=== PATIENT | male | born 1960 | race Caucasian/White ===

== ENCOUNTER 2019-04-07 09:21 | Observation (INO) ==
[2019-04-07] MEDS ORDERED: PHENERGAN IV PRN (09:40)
[2019-04-07] MEDS ORDERED: TORADOL IV PRN (09:40)
[2019-04-07] MEDS ORDERED: PROTONIX IV SCH (11:00)
[2019-04-07] MEDS ORDERED: SODIUM CHLORIDE 0.9% INJ SCH (11:00)
[2019-04-07 11:14] LABS: BASO# 0.03 X1000 (0.0-0.2); BASO% 0.3 % (0.0-0.8); EOS# 0.18 X1000 (0.0-0.7); HEMATOCRIT 51.6 % (42.0-52.0); HEMOGLOBIN 17.1 g/dL (14.0-18.0); IMM GRAN# 0.02 X1000 (0.0-0.04); IMM GRAN% 0.2 % (0.0-0.5); LYMPH# 2.48 X1000 (1.2-3.4); LYMPH% 27.3 % (20.5-51.1); MCH 30.6 PG (27-31); MCHC 33.1 g/dL (33-37); MCV 92.3 FL (81-99); MONO# 0.94 X1000 (0.11-0.59); MONO% 10.4 % (1.7-9.3); MPV 10.6 FL (7.4-10.4); NEUT# 5.43 X1000 (1.4-6.5); NEUT% 59.8 % (42.2-75.2); PLT 174 X1000 (130-400); RBC 5.59 XMIL (4.7-6.1); RDW 13.6 % (11.5-14.5); WBC 9.08 X1000 (4.8-10.8)
[2019-04-07] MEDS: DILAUDID IV PRN ×3 (11:22→23:02)
[2019-04-07] MEDS: NS 1,000 ML IV SCH (11:23)
[2019-04-07 11:34] LABS: ALB/GLOB RATIO 1.5; ALBUMIN 4.4 g/dL (3.5-5.0); CALCIUM 9.5 mg/dL (8.8-10.2); CREATININE 1.4 mg/dL (0.7-1.2); POTASSIUM 4.1 mmol/L (3.5-5.1); TOTAL BILIRUBIN 0.65 mg/dL (0.20-1.00); TOTAL PROTEIN 7.3 g/dL (6.3-8.3)
--- NOTE | 2019-04-07 14:14 | Diag Imaging Result Doc PS360 ---
EXAM: CT ABD/PELVIS W/IV CONT ONLY HISTORY: Abdominal pain TECHNIQUE: CT abdomen and pelvis with intravenous contrast COMPARISON: None. FINDINGS: The gallbladder has been removed. There is fatty infiltration of the liver. Normal spleen, pancreas, and adrenal glands. There are small bilateral renal cysts and there are bilateral nonobstructing renal stones. No right-sided hydronephrosis. There is a 4 x 5 x 8 mm stone in the mid left ureter with moderate hydronephrosis and a delayed left nephrogram. No aortic aneurysm. Prominent atherosclerosis. No bowel obstruction. No inflammation about the cecum. No abscess. No ascites. The scattered colonic diverticula. The urinary bladder is distended and appears normal. IMPRESSION: 1.Obstructing left ureteral stone 2.Multiple bilateral nonobstructing renal stones 3.Cholecystectomy 4.There is fatty infiltration of the liver 5.Colonic diverticulosis This exam was performed using automated exposure control, adjustment of mA or kV according to patient size, and/or use of iterative reconstruction technique. Electronically signed by Raz Carson 04/07/2019 2:11 PM
--- NOTE | 2019-04-07 19:59 | CONSULTATION ---
DATE OF CONSULTATION: 04/07/2019 ATTENDING AND REFERRING PHYSICIAN: Dr. Hopkins. HISTORY OF PRESENT ILLNESS: This 59-year-old male has a several week history of increasing left flank pain. He states it also went into his abdomen and radiated into the left scrotum. The patient has a long history of renal lithiasis. A CT scan of the abdomen and pelvis with contrast revealed a left midureteral stone measuring approximately 5 x 8 mm. The patient is currently without pain. The patient underwent cystoscopic exam, left ureteroscopy, laser lithotripsy, and stone removal in May 2017. He has not been seen in the Urology Clinic since then. His PSA in January 2017 was 1.43. He has a history of coronary artery disease and is on is on Xarelto. The patient states he voids without difficulty. PAST MEDICAL HISTORY: History of atrial fibrillation, hypothyroidism, coronary artery disease. CURRENT MEDICATIONS: Include carvedilol, Xarelto, diazepam, digoxin, levothyroxine, lisinopril, eszopiclone 3 mg, Isentress 400 mg, Norvir 100 mg. PAST SURGICAL HISTORY: Appendectomy, cholecystectomy, colonoscopy, shockwave lithotripsy, several cystoscopic exams with ureteroscopy and stone removal. SOCIAL HISTORY: Alcohol use social, tobacco use none recently. ALLERGIES: He is allergic to latex gloves. REVIEW OF SYSTEMS: Usually in good health. He denies any problems with diabetes, strokes, seizures, pulmonary or bowel problems. PHYSICAL EXAM: General: An obese, age apparent, normally developed white male, oriented in all ways and cooperative. HEENT: Normal for age. Lungs: Clear. Cardiovascular: Regular rate and rhythm. Abdomen: No CVA tenderness at present. Abdomen is protuberant, soft, nontender. No hepatosplenomegaly or masses. Normal bowel sounds. Genitourinary: Circumcised male. No lesions or discharges. Both testes are down and palpably normal. Rectal: Deferred until surgery. Extremities: No clubbing, cyanosis, or edema. Neuro: No focal deficits. DATA: CT scan of the abdomen and pelvis is as noted in the history of present illness. IMPRESSION: 1. Bilateral renal stones that are nonobstructing. 2. Left midureteral stone with some obstruction on CT scan but currently without pain. RECOMMEND: 1. Discussed with patient cystoscopic exam with left ureteroscopy, laser lithotripsy of stone and stone removal. Discussed it would be easier if the stone had progressed to below the pelvic bones closer to the bladder. Recommend starting Flomax at 0.4 mg a day. 2. Schedule surgery for but if the pain became severe and not controlled with oral pain medication would do it sooner. Thank you for this consultation. cc: MD Solo Blackburn MD
[2019-04-07] MEDS ORDERED: DITROPAN PO PRN (21:38)
--- NOTE | 2019-04-07 22:50 | HISTORY AND PHYSICAL ---
CHIEF COMPLAINT: Left flank pain radiating to the groin since yesterday. HISTORY OF PRESENT ILLNESS: He is a 59-year-old white male basically admitted to the hospital with intractable left renal colicky pain. He had a multiple kidney stone disease. CT scan showed a 5 mm kidney stone in the mid ureter with moderate hydronephrosis. Urology consult was obtained. Based on that, further recommendations will be followed. PAST MEDICAL HISTORY: Chronic anxiety, atrial fibrillation, depression, metabolic syndrome, hypertension, nonactive HIV infection in remission, hyperlipidemia, hypothyroidism, history of kidney stones, sleep apnea. PAST SURGICAL HISTORY: Appendectomy, cholecystectomy. History of lithotripsy, stone removal in May 2017. MEDICINES: Lunesta 3 mg at bedtime, Synthroid 88 mcg daily, lisinopril 20/12.5 daily, ritonavir 100 mg daily, Xarelto 20 daily, Lyrica 75 daily, Coreg 3.125 p.o. b.i.d., Prezista 600 p.o. b.i.d., Valium 10 daily, Lanoxin 0.125 daily, multivitamin 1 tablet daily, [place] as needed, Ditropan as needed. Digoxin. ALLERGIES: Latex and Pravachol. SOCIAL HISTORY: Single. Works in [employer]. No smoking. Alcohol use socially. No drug abuse. FAMILY HISTORY: Father of aneurysm of the brain at 52. Mother is 87. Hypertension. Good health. REVIEW OF SYSTEMS: HEENT: No headache. No vision problem. No earache. No sore throat. Neck: No goiter. No lymphadenopathy. No bruit. Cardiopulmonary: No chest pain, shortness of breath, PND, orthopnea. Heart: Irregular. GI: No nausea, vomiting. Abdominal pain on the left. Renal colicky and no swelling of feet. No joint pain. Neurologic: No focal symptoms or weakness. PHYSICAL EXAMINATION: VITAL SIGNS: Temperature is 98 degrees, pulse is 70. Vitals are stable. Weight 195 pounds. HEENT: Atraumatic, normocephalic. Pupils equal, react to light. TMs are normal. Nose and throat within normal limits. NECK: Supple. No lymphadenopathy. No goiter. CHEST: Bilaterally air entry. HEART: Irregular heart sounds. ABDOMEN: Belly is soft, obese, nontender. EXTREMITIES: No peripheral edema. No neurological deficits. INVESTIGATIONS: White cell count 9, hematocrit 51, platelets 174,000. Sodium 136, potassium 4.1, chloride 99, BUN 22, creatinine 1.4, glucose 111. LFTs were normal. Urine cultures are pending. CT scan of the abdomen and pelvis showed obstructing left ureteral stone, about 4 x 8 mm stone with moderate hydronephrosis, multiple bilateral nonobstructing stones, fatty liver, colonic diverticulosis. ASSESSMENT AND PLAN: 1. A 59-year-old white male admitted to the hospital with left renal colicky. Dilaudid for pain, intravenous fluids, and Flomax. Gastrointestinal prophylaxis with IV Protonix and strain the urine. Will use the pain medications. If he passes on his own we will find; otherwise, has been tentatively scheduled for lithotripsy stone extraction morning. 2. Chronic atrial fibrillation, on Coreg and Xarelto. 3. Hypothyroidism on Synthroid. 4. Hypertension on lisinopril/hydrochlorothiazide 20/12.5. 5. Insomnia on esta. 6. Chronic anxiety on diazepam. 7. History of human immunodeficiency virus disease in remission. Continue all the medications and discussed the plan of care and he will follow up. cc: Solo Hopkins MD
[2019-04-07] MEDS: FLOMAX PO SCH (23:02)
[2019-04-07] MEDS ORDERED: AMBIEN PO SCH (23:30)
[2019-04-07] MEDS ORDERED: COREG PO SCH (23:45)
[2019-04-08] MEDS: NS 1,000 ML IV SCH (02:30)
[2019-04-08] MEDS ORDERED: SYNTHROID PO SCH (07:00)
[2019-04-08 07:50] VITALS: BP 157/85
[2019-04-08] MEDS ORDERED: LYRICA PO SCH (09:00)
[2019-04-08] MEDS ORDERED: VALIUM PO SCH (09:00)
[2019-04-08] MEDS ORDERED: COREG PO SCH (09:00)
[2019-04-08] MEDS ORDERED: XARELTO PO SCH (09:00)
[2019-04-08] MEDS ORDERED: PREZISTA PO SCH (09:00)
[2019-04-08] MEDS ORDERED: CENTRUM TABLET PO SCH (09:00)
[2019-04-08] MEDS ORDERED: PRINZIDE 20/12.5MG PO SCH (09:00)
[2019-04-08] MEDS ORDERED: LANOXIN PO SCH (09:00)
[2019-04-08] MEDS ORDERED: NORVIR PO SCH (09:00)
[2019-04-08] MEDS: FLOMAX PO SCH (09:29)
[2019-04-08] MEDS ORDERED: AMBIEN PO SCH (21:00)
--- NOTE | 2019-04-10 21:12 | DISCHARGE SUMMARY ---
ADMISSION DATE: 04/07/2019 DISCHARGE DATE: 04/08/2019 DISCHARGING DIAGNOSIS: Left flank pain due to 5 mm kidney stone in the left mid ureter with hydronephrosis moderate. SECONDARY DIAGNOSES: 1. Chronic anxiety. 2. Chronic atrial fibrillation. 3. Depression. 4. Metabolic syndrome. 5. Hypertension. 6. Hyperlipidemia. 7. Hypothyroidism. 8. History of kidney stones. 9. Sleep apnea. 10. Non-active HIV infection in remission. CONSULTS: Dr. Mckeon. PROCEDURES: CT scan of the abdomen and pelvis: Obstructing left ureteral stone, multiple bilateral nonobstructing renal stones, cholecystectomy, fatty liver, colonic diverticulosis. BRIEF HISTORY: Please see the H and P that was done on 04/07/2019. In brief, he is a 59-year-old white gentleman admitted to the hospital with severe left flank pain going to the groin. He has a prior history of kidney stones. HOSPITAL COURSE: He was given IV fluids, Flomax, strain the urine, pain management. In the meantime, Dr. Mckeon was consulted. He was given the options and since the pain is adequately controlled, continue outpatient treatment with Ultracet and strain the urine. If it does not pass, he has been scheduled on morning for cystoscopy and stone extraction followed by double-J stent. LABS: White cell count 9, hematocrit 51, platelet 174. Sodium 136, potassium 4.1, chloride 99, BUN 22, creatinine 1.4, glucose 111. LFTs were normal. Urine cultures were negative. DISCHARGE INSTRUCTIONS ARE FOLLOWS: 1. Lunesta 3 mg at bedtime. 2. Synthroid 88 mcg daily. 3. Lisinopril/hydrochlorothiazide 20/12.5 daily. 4. Norvir 100 mg daily. 5. Xarelto 20 daily. 6. Lyrica 75 daily. 7. Coreg 3.125 p.o. b.i.d. 8. Prezista 600 p.o. b.i.d. 9. Valium 10 daily. 10. Lanoxin 0.125 daily. 11. Multivitamin 1 tablet daily. 12. Oxybutynin 5 mg t.i.d. as needed for spasms. 13. Ultracet 1 tablet q. 6 for pain. 14. Flomax 0.4 p.o. b.i.d. If fails to pass the stone, consider outpatient cystoscopy stone extraction followed by double-J stent. cc: Solo Hopkins MD
== END 2019-04-08 09:41 | disposition home or self-care (01) ==
LOC: DIRADM → 4N 10:03
PROVIDERS: ADMIT Internal Medicine; ATTEND Internal Medicine